=== PATIENT | male | born 1995 | race Caucasian/White ===

== ENCOUNTER 2023-09-16 17:36 | Emergency (ER) | payer OTHER, SELFPAY ==
[2023-09-16 17:39] VITALS: BP 135/90
[2023-09-16 18:10] LABS: Monotest Negative (Negative)
[2023-09-16 18:16] LABS: % Basophils 0.6 % (0-2); % Eosinophils 1.1 % (0-6); % Immature Granulocytes 1.2 % (0-0.5); % Lymphocytes 28.7 % (20.5-51.1); % Monocytes 10.7 % (1.7-9.3); % Neutrophils 57.7 % (42.2-75.2); Absolute Basophils 0.1 10^3/uL (0-0.2); Absolute Eosinophils 0.1 10^3/uL (0-0.7); Absolute Immature Granulocytes 0.1 10^3/uL (0-0.05); Absolute Lymphocytes 2.3 10^3/uL (1.2-3.4); Absolute Monocytes 0.9 10^3/uL (0.1-0.6); Absolute Neutrophils 4.7 10^3/uL (1.4-6.5); Hematocrit 50.3 % (39.0-52.0); Hemoglobin 17.3 g/dL (13.0-18.0); Mean Corp Hgb Conc. 34.4 g/dL (33.0-37.0); Mean Corpuscular Hgb 29.1 pg (27.0-31.0); Mean Corpuscular Volume 84.5 fL (80.0-94.0); Mean Platelet Volume 10.8 fL (7.4-10.4); Nucleated Red Blood Cells % 0 % (-); Platelet Count 271 10^3/uL (130-400); Red Blood Cell Count 5.95 10^6/uL (4.70-6.10); Red Cell Dist. Width 14.8 % (11.5-14.5); White Blood Cell Count 8.1 10^3/uL (4.8-10.8)
[2023-09-16 18:24] LABS: COVID-19 Antigen Negative (Negative)
[2023-09-16 18:31] LABS: ALT (SGPT) 65 U/L (0-50); AST (SGOT) 42 U/L (17-59); Albumin 4.3 g/dl (3.5-5.0); Alkaline Phosphatase 50 U/L (38-126); Blood Urea Nitrogen 14 mg/dl (9-20); Carbon Dioxide 29 mmol/L (22-30); Chloride 99 mmol/L (98-107); Glucose 103 mg/dl (70-99); Potassium 4.4 mmol/L (3.5-5.1); Sodium 137 mmol/L (135-145); Total Bilirubin 0.9 mg/dl (0.2-1.3); Total Protein 7.7 g/dl (6.3-8.2); eGFR > 60.00
--- NOTE | 2023-09-16 18:54 | ED.GENMED ---
History of Present Illness
General
Chief Complaint: Cold/Flu/URI Symptoms
Source: patient
Time Seen by Provider: 09/16/23 18:42
History of Present Illness
History of Present Illness:
27-year-old male with no significant past medical history presenting to the emergency department for evaluation of sore throat that started this past Monday, body aches with a fever Tmax of 102 earlier in the week, states the body aches and fever
have seemed to resolve but patient still has a sore throat. He went to urgent care on and was prescribed amoxicillin for suspected strep throat but states not feeling any better. Patient states the sore throat is bilateral. He notes pain
while swallowing. No known sick contacts or recent travel. Denies any rashes or any other concerns.
Past History
Past History
ED Past Medical History: None
ED Past Surgical History: None
Social History
Tobacco: Non-smoker
Alcohol: None
Drug: None
Personal: Single
Living: with family
Review of Systems
Review of Systems
All Other Systems: ROS reviewed and negative except as documented in HPI and ROS
Phy Exam
Physical Exam
Physical Exam:
GENERAL: Alert , in no apparent distress
HEAD: NCAT
EYE: conjunctiva clear
NECK: Supple, no significant adenopathy.
ENT: Bilateral 1+ tonsillar hypertrophy, exudates on the right palatine tonsil, 2 small areas of exudate on the left palatine tonsil, uvula midline, airway patent, no stridor or trismus, mmm. TMs clear bilateral
CARDIAC: Regular rate and rhythm
LUNGS: Clear breath sounds bilaterally, no acute respiratory distress, no wheezes/rales/rhonchi
NEUROLOGICAL: Alert and oriented
SKIN: Warm and dry, skin intact. No rash
MUSCULOSKELETAL: well perfused.
PSYCH: Normal and appropriate interaction.
Scores
Heart Failure Risk
Heart Failure Risk Score: Not Applicable
Heart Score for Chest Pain Patients
STEMI patient?: Not applicable
Withdrawal Assessment of Alcohol
Withdrawal Assessment Completed?: Not applicable
Course
Orders/Labs/Results
Orders:
Orders
09/16/23 17:47
CMP [Comprehensive Metabolic Panel] Urgent
COVID-19 Antigen Urgent
Source: Nasal Swab
Complete Blood Count/With Diff Urgent
Monotest Urgent
Rapid Strep Group A Urgent
ARNOLD Source: Throat/Pharynx
Specimen Description:
Date Specimen was Collected: 09/16/23
Time Specimen was Collected: 17:44
09/16/23 18:53
Amoxicillin 875 mg/Clav 125 mg [Augmentin 875 mg/125 mg] 1 tablet PO NOW STA
Prednisone [Deltasone] 40 mg PO NOW STA
Viscous Lidocaine 2% [Xylocaine Viscous Cup] 15 ml PO NOW STA
Abnormal Lab Results
09/16/23
17:47
RDW 14.8 H %
(11.5-14.5)
MPV 10.8 H fL
(7.4-10.4)
Abs Immat Gran (auto) 0.1 H 10^3/uL
(0-0.05)
Absolute Monos (auto) 0.9 H 10^3/uL
(0.1-0.6)
Immature Gran % 1.2 H %
(0-0.5)
Monocytes % 10.7 H %
(1.7-9.3)
Glucose 103 H mg/dl
(70-99)
ALT 65 H U/L
(0-50)
09/16/23 17:47
09/16/23 17:47
Vital Signs
Initial and Last Documented VS:
Initial Vital Signs
Temp Pulse Resp BP Pulse Ox
99.3 F 108 16 135/90 99
09/16/23 17:39 09/16/23 17:39 09/16/23 17:39 09/16/23 17:39 09/16/23 17:39
Last Documented Vital Signs
Temp Pulse Resp BP Pulse Ox
99.3 F 99 18 121/70 98
09/16/23 17:39 09/16/23 19:18 09/16/23 19:18 09/16/23 19:18 09/16/23 19:18
MDM/Problems Addressed
Differential Diagnosis Includes:
Viral syndrome, strep throat, tonsillitis, peritonsillar abscess, retropharyngeal abscess
MDM/Problems Addressed:
27-year-old male presenting emergency department for evaluation of sore throat and flulike symptoms that been ongoing since Monday, started amoxicillin on , not having any relief. He does have 1+ bilateral tonsillar hypertrophy with
exudates. I am less suspicious for peritonsillar abscess or retropharyngeal abscess given the bilateral nature of Tums. Labs including COVID and monotest were ordered from triage and are all unremarkable. Patient does have a very mild elevation
of his ALT. At this time I suspect viral etiology is most likely but given his continued and worsening symptoms will change patient's antibiotic to Augmentin to cover for possible early abscess formation. Will also treat with prednisone taper and
viscous lidocaine. ENT information provided to the patient. He is aware of return precautions but otherwise stable for discharge home.
*Pulse Oximetry
Patient hypoxic: no
*Critical Care Note
Total Time (30-74mins, 75-104mins- exclusive of procedures): Not Applicable
ED Attending Note
-
Portions of this chart may have been created with voice recognition software.� Occasional wrong word or��sound alike� substitutions may have occurred due to the inherent limitations of voice recognition software.
Discharge Plan
Departure
Patient Disposition: Home (Routine Discharge)
Date of Disposition: 09/16/23
Time of Disposition: 18:54
Patient with high blood pressure during this ER visit?: No
Discharge Problem:
Acute tonsillitis
Instructions: Peritonsillar Abscess, Adult (DC)
Prescriptions:
New
prednisone 10 mg tablet
10 mg PO DIRECTED Qty: 21 0RF
Rx Instructions:
Take 60mg on day one, take 50mg day 2, take 40mg day 3, take 30 mg day 4, take 20mg day 5, take 10mg day 6
amoxicillin-pot clavulanate 875-125 mg tablet
1 tab PO BID 7 Days Qty: 14 0RF
lidocaine HCl [Lidocaine Viscous] 2 % solution
1 applic mucous membrane QID PRN (Reason: Pain) Qty: 100 0RF
No Action
prednisone 10 MG tablet
10 mg PO .TAPER Qty: 30 0RF
Rx Instructions:
Take 40mg daily x3days, 30mg daily x3days,
20mg daily x3days, 10mg daily x3days.
Referrals:
Sheldon Villanueva MD [Active] - (ENT - Call for appointment if need be)
Interventions
Interventions:
*Risk Screen - Suicide Last Done: 09/16/23 19:11
*General Assessment Last Done: 09/16/23 19:11
*Neglect/Abuse Screening Last Done: 09/16/23 19:11
ED- Fall Risk Assessment Last Done: 09/16/23 19:11
*ED COVID-19 Vaccine History Last Done: 09/16/23 19:11
*Nursing Disposition Last Done: 09/16/23 19:25
ED- Pulmonary Assessment Last Done: 09/16/23 19:11
Discharge Date and Time
Discharge Date/Time: 09/16/23 19:26
Print Language: [place]
[2023-09-16 19:15] VITALS: BMI 38.6
[2023-09-16] MEDS: AUGMENTIN 875 MG/125 MG 1 TABLET PO (19:15)
[2023-09-16] MEDS: XYLOCAINE VISCOUS CUP 15 ML PO (19:15)
[2023-09-16] MEDS: DELTASONE 40 MG PO (19:15)
[2023-09-16 19:18] VITALS: BP 121/70
== END 2023-09-16 19:26 | disposition home or self-care (01) ==
LOC: EMR 17:36
PROVIDERS: EMERGENCY PHYSICIAN Student in an Organized Health Care Education/Training Program
DX: J03.90 Acute tonsillitis, unspecified (principal)
CPT/HCPCS: 99283; 80053; 85025; 86308; 87070; 87811; 87880